=== PATIENT | male | born 1970 | race Caucasian/White ===

== ENCOUNTER → 2020-10-29 | Outpatient (CLI) | payer BC ==
[~2020-10-29] MED LIST: ESCITALOPRAM OX10 MG PO; PROTONIX40 M2 PO; VIAGRA50 MG PO
== END ==
LOC: LAB 09:50
PROVIDERS: ATTEND Student in an Organized Health Care Education/Training Program
DX: Z01.812 Encounter for preprocedural laboratory examination (principal); Z20.828 Contact with and (suspected) exposure to other viral communicable diseases

== ENCOUNTER 2020-11-03 06:14 | Observation (INO) | payer BC ==
[2020-10-29 09:47] LABS: HEMATOCRIT 40.8 % (42.0-52.0); HEMOGLOBIN 13.9 gm/dL (14.0-18.0); MCH 31.4 pg (26.0-34.0); MCV 92.4 fL (80.0-100.0); RBC 4.42 mil/uL (4.50-6.00); RDW 12.7 % (10.5-14.5); WBC 4.6 thou/uL (4.0-11.0)
[2020-10-29 09:47] LABS: URINE BILIRUBIN NEGATIVE (Negative); URINE BLOOD NEGATIVE (Negative); URINE CLARITY CLEAR; URINE COLOR YELLOW; URINE GLUCOSE-RANDOM* NEGATIVE (Negative); URINE KETONES NEGATIVE (Negative); URINE LEUKOCYTES-REFLEX TRACE (Negative); URINE NITRITE-REFLEX NEGATIVE (Negative); URINE PROTEIN (DIPSTICK) NEGATIVE (Negative); URINE SPECIFIC GRAVITY 1.025 (1.005-1.035); URINE UROBILINOGEN 0.2 E.U./dl (0.2-1.0)
[2020-10-29 10:00] LABS: PROTIME 9.9 Seconds (9.3-11.4)
[2020-10-29 10:01] LABS: ALBUMIN 4.3 g/dL (3.4-5.0); CALCIUM 9.7 mg/dL (8.5-10.1); CREATININE 0.9 mg/dL (0.7-1.3); POTASSIUM 3.9 mmol/L (3.5-5.1)
[~2020-11-03] VITALS: Ht 185.4 cm; Wt 90.7 kg
--- NOTE | ~2020-11-03 | O ---
[address] [address] OPERATIVE REPORT Name: RICARDO KO [id number] Admission: 11/03/20 Attend Phys: Oscar Campos MD Discharge: 11/03/20 Date of : 72 Report #: [id number] THIS REPORT FOR: cc: Oscar Mercado MD, Michael A. MD McCabe,Oscar Baldwin MD ~ DATE OF SERVICE: 11/03/2020 SERVICE: Orthopedics. FACILITY: [facility]. SURGEON: Oscar Campos MD LOOM OPERATOR APPRENTICE: Hellen Araujo. INDICATION FOR LOOM OPERATOR APPRENTICE: Assistance with the exposure and closure as well as implantation and retraction. PREOPERATIVE DIAGNOSES: 1. Left knee pain. 2. Left knee medial compartment osteoarthritis, severe. POSTOPERATIVE DIAGNOSES: 1. Left knee pain. 2. Left knee medial compartment osteoarthritis, severe. PROCEDURES: 1. Left unicompartmental knee arthroplasty. 2. Robotic-assisted arthroplasty. COMPLICATIONS: None. DRAINS: None. SPECIMENS: None. ANESTHESIA: General with regional. FINDINGS: 1. Severe medial compartment osteoarthritis. 2. [employer] UNI: Size 6 Journey Oxinium femoral component, size 5 tibial baseplate, 10 mm poly insert. HISTORY: The patient is a 50-year-old gentleman with a history of severe left [address] [address] OPERATIVE REPORT Name: RICARDO KO Room #: 447-P [id number] Admission: 11/03/20 Attend Phys: Oscar Campos MD Discharge: 11/03/20 Date of : 72 Report #: [id number] knee osteoarthritis that had failed extensive conservative measures including rest, activity modifications, physical therapy, oral medicines and injections. He had uvea-bl-lvok osteoarthritis with sclerosis and osteophytes. He was indicated for surgical treatment after failing conservative measures as it was affecting his activities of daily living. Risks, benefits, alternatives, and indication of surgery discussed with him in detail. Risks include but not limited to pain, bleeding, infection, injury to nerves or blood vessels, persistent pain despite surgical intervention, failure of any repairs, progression of preexisting chondral injury, stiffness, need for further surgery as well as complications related to anesthesia such as stroke, heart attack, pulmonary complications, thromboembolic disease and . Despite these risks, he wished to proceed. PROCEDURE IN DETAIL: After the left lower extremity was correctly identified as the operative extremity, the patient underwent regional nerve block by Anesthesia, then taken to the operating room where general anesthesia was induced without complication. He was padded appropriately and prophylactic antibiotics were administered at appropriate time. TXA was utilized as well. Tourniquet was applied to the left leg. Left lower extremity was then prepped and draped in standard sterile fashion. Time-out procedure was performed. Standard anterior approach was made with medial parapatellar arthrotomy. There was an obvious medial compartment osteoarthritis with osteophytes and severe enme-vq-wifa degenerative changes. The medial aspect of the knee was exposed. The patellofemoral and lateral compartments were evaluated. He had some mild chondromalacia of the patellofemoral joint, but did not have any evidence that would be indicative of severe arthritis elsewhere. So, we proceeded with the medial UNI. The medial meniscus was excised. A limited soft tissue release was performed medially. The osteophytes were removed and then the [employer]hew half pins and checkpoints were placed in the appropriate position and then the [employer] robotic assistance system was placed and calibrated assessing the patient's alignment and range of motion and then a mattress were taken to assist with the balancing as well. Ultimately, we selected the size 6 femoral component and a size 5 tibial component and the templating appeared appropriate with a well-balanced and positioned implants. The Navio was used to create the bony resection. The trials were placed. We reassessed the balancing and I was happy with the range of motion, balancing and alignment at this point. Therefore, the trials were removed. The periarticular injection cocktail was injected in the posterior and medial soft tissues. We thoroughly irrigated the bone and the joint and then cemented the final implants into position utilizing the 10 mm trial spacer with the knee held in extension while the cement cured. The tourniquet was let down. Hemostasis was achieved. The rest of the periarticular injection was utilized and the second dose of TXA was administered at appropriate time. [address] [address] OPERATIVE REPORT Name: RICARDO KO Room #: 447-P [facility] [place]#: [id number] Admission: 11/03/20 Attend Phys: Oscar Campos MD Discharge: 11/03/20 Date of : 72 Report #: [id number] I assessed the balancing, was happy with the 10 mm trial and then placed the final 10 mm polyethylene implant into position, snapped into place and then thoroughly irrigated the knee one final time. The arthrotomy was closed over a gram of vancomycin powder with 0 Vicryl suture in [id number]-rn-[id number] interrupted fashion and the skin was closed with 2-0 Vicryl followed by running subcuticular 3-0 Monocryl and Dermabond. Sterile dressing was applied followed by compression stocking and a PolarCare device. The patient was awakened from anesthesia and taken to recovery room in stable condition. No complications. All counts were correct. By: [id number] Oscar Campos MD /nt
[2020-11-03 07:28] VITALS: BP 126/80
[2020-11-03 11:50] VITALS: BP 116/65
[2020-11-03 14:38] VITALS: BP 126/80
--- NOTE | 2020-11-03 14:39 | NUR ---
Pt dcing home later today as he did well postop with therapy. Outpt therapy anticipated. Pt will need a rwalker. Referral called to inhouse liason for [facility] to issue to pt this afternoon. Script given. No other cm interventions indicated.
--- NOTE | 2020-11-03 15:46 | NUR ---
PT RESTING IN BED ALERT XS4 STATES NO PAIN DOES NOT WANT PAIN MEDS. IV FLUIDS AND IV ABT INFUSING AT THIS TIME. PT IS USING THE URINAL. PT WALKED WITH THERAPY THE HALLS ON THE UNIT. USED WALKER HAD A STEADY GAIT. PT HAD WALKER DELIVERED TO HIS ROOM WILL SEND WITH HIM WHEN HE DISCHARGES. V.S 97.9 16 89 116/ 65 O2 SAT = 96% RA. HEIGHT = 6.1 WEIGHT = 209.0 LBS PT IS PLEASANT AND COOPERATIVE WITH CARE.
[2020-11-03 15:59] VITALS: BP 126/80
--- NOTE | 2020-11-03 17:09 | NUR ---
DISCHARGE PAPERS REVIEWED SIGNED AND COPY IN CHART. ALL BELONGINGS PACKED AND TO BE SENT WITH PATIENT INCLUDING WALKER THAT WAS DELIEVERED. PT W/O PAIN OR RESP DISTRESS AT THIS TIME. PT GIVEN RX'S. POLAR PACK AND ORTHO PACKET SENT WITH PATIENT.
[2020-11-03 17:40] VITALS: BP 126/80
== END 2020-11-03 17:30 | disposition home or self-care (01) ==
LOC: OR 06:14 → TBA 06:15 → OR 08:46 → 4S 11:59 → OR 14:51 → 4S 17:30
PROVIDERS: ADMIT Orthopaedic Surgery Sports Medicine; ATTEND Orthopaedic Surgery Sports Medicine
DX: M17.12 Unilateral primary osteoarthritis, left knee (principal); Z79.899 Other long term (current) drug therapy
CPT/HCPCS: 50010; 50101; 50415; 50954; 51130; 51225; 51320; 52001; 52282; 53078; 53370; 54118; 56527; 56528; 57095; 57103; 57110; 57127; 57180; 62110; 62900; 70005